=== PATIENT | male | born 2000 | race Caucasian/White ===

== ENCOUNTER 2019-04-21 23:32 | Emergency (ER) | payer SELFPAY ==
[2019-04-21 23:32] VITALS: BMI 22.8
--- NOTE | 2019-04-21 23:33 | ED_ITS ---
Entered by Yvonne Taylor, acting as scribe for Mason Bush DO HPI - Altered Mental Status General: Chief Complaint: Altered Mental Status Stated Complaint: Altered Mental Status Time Seen by Provider: 04/21/19 23:33 Source: EMS Mode of arrival: EMS Limitations: no limitations History of Present Illness: HPI narrative: 18 yo m came to the er by [facility] for altered mental status. Onset was 3 hours ago. Pt states that he was offered to go to a libertarian and was given a cup of coke and when he started drinking it he found out that there was 2 shots of vodka in it but was unsure about if there was anything else in it. Pt is having some tremors. Pt said that he was trying to vomit to try to get that out of his system and was able to but when he did he said that it made his chest hurt. MD complaint: altered mental status (mild) Onset (ago): hour(s) (3 hours ago) Severity: mild Context: alcohol abuse and drug abuse Associated symptoms: Reports no associated symptoms Treatments prior to arrival: other (2mg of ativan) Review of Systems General: Reports: other (negative unless marked) Const: Denies: fever, chills, body aches, change in appetite, fatigue or malaise ENMT: Denies: throat pain, ear pain, nasal discharge or nasal congestion Card: Denies: chest pain, edema, shortness of breath on exertion or shortness of breath when lying down Resp: Denies: shortness of breath, productive cough or non-productive cough GI: Denies: abdominal pain, nausea, vomiting, vomiting blood, coffee grounds in vomit, diarrhea, constipation, bloating, blood in stool or black tarry stool : Denies: flank pain, painful urination, urinary frequency or urinary urgency Skin/Breast: Denies: rash or itching Psych: Reports: anxiety and sleeping less PFSH ED PFSH: Social History Smoking and tobacco status: current every day smoker Physical Exam Const: EXAM LIMITATIONS: altered mental status (mild) OR IENTATION/CONSCIOUSNESS: Yes awake Eye: COMMON NORMALS: PERRL PUPIL: Yes PERRL Neck/C-Spine: COMMON NORMALS: full ROM Chest: COMMONS NORMALS: inspection of chest normal Resp: COMMON NORMALS: normal respiratory effort Cardio: RATE: tachycardic GI: COMMON NORMALS: normal to inspection, nondistended, normoactive bowel sounds and soft to palpation PALPATION: Yes soft : COMMON NORMALS: Yes no CVA tenderness BLADDER/KIDNEY EXAM: Yes no CVA tenderness Back/Pelvis: COMMON NORMALS: no CVA tenderness Extremity: COMMON NORMALS: normal to inspection Neuro: ROSA COMA SCALE: document GCS findings (ems 15) Psych: COMMON NORMALS: cooperative Skin: COMMON NORMALS: no rashes or lesions noted GENERAL SKIN EXAM: no ra shes or lesions noted Course ED course: On reexamination patient is awake and alert he appears to have a lot of anxiety when he first arrived that is mostly resolved he is mildly elevated white count. We have given him some fluids he does say he feels much better. His carbon dioxide was low when he first came in and think he was hyperventilating. We will go ahead and discharge him home strongly encouraged him to avoid alcohol. Vital Signs: Vital signs: Vital Signs Pulse Rate 94 04/22/19 00:30 Respiratory Rate 18 04/22/19 00:30 Blood Pressure 101/39 04/22/19 00:30 Pulse Oximetry 94 04/22/19 00:30 MDM - Altered Mental Status Lab Data: Labs: Lab Results 04/21/19 04/21/19 04/22/19 Range/Units 23:20 23:20 00:25 WBC 18.6 H (4.5-13.0) 10^3/ uL RBC 5.66 H (4.1-5.3) 10^6/u L Hgb 18.0 H (11.7-16.6) g/dL Hct 49.4 (42.0-52.0) % MCV 87.3 (80-94) fL MCH 31.8 (28.0-34.0) pg MCHC 36.4 H (30.0-36.0) g/dL RDW 12.0 L (12.1-15.1) % Plt Count 380 (130-400) 10^3/c mm MPV 10.8 H (7.4-10.4) fL Neut % (Auto) 74.9 % Lymph % (Auto) 15.7 % Bryan % (Auto) 8.0 % Eos % (Auto) 0.6 % Baso % (Auto) 0.5 % Neut # (Auto) 13.9 H (1.8-8.0) 10^3/u L Lymph # (Auto) 2.9 (1.5-6.5) 10^3/u L Bryan # (Auto) 1.5 H (0.2-0.9) 10^3/u L Eos # (Auto) 0.1 (0.0-0.8) 10^3/u L Baso # (Auto) 0.1 (0.0-0.1) 10^3/u L Nucleated RBC % (a uto) 0 % Nucleated RBCs # 0.0 /100WBC Sodium 140 (136-145) mmol/L Potassium 3.5 (3.5-5.1) mmol/L Chloride 103 (98-107) mmol/L Carbon Dioxide 15 L (22-29) mmol/L Anion Gap 25.5 H (5-19) BUN 11 (6-20) mg/dL Creatinine 0.9 (0.7-1.2) mg/dL GFR Calculation 108.7 (90-130) mL/min Glucose 161 H (65-115) mg/dL Calculated Osmolal ity 290 (285-295) mOsm/k g Calcium 10.6 H (8.5-10.5) mg/dL Total Bilirubin 0.6 (0.15-1.2) mg/dL AST 26 (0-40) U/L ALT 27 (0-41) U/L Alkaline Phosphata se 110 (40-130) IU/L Total Protein 8.2 (6.6-8.7) g/dL Albumin 5.4 H (3.5-5.2) g/dL Globulin 2.8 (1.3-4.6) g/dL Urine Color Yellow (Yellow) Urine Appearance Clear (CLEAR) Urine pH 6.5 (5-7) Ur Specific Gravit y 1.010 (1.005-1.030) Urine Protein Neg (Negative) Urine Glucose (UA) Norm (Normal) Urine Ketones Negative (Negative) Urine Blood Neg (Negative) Urine Nitrate Negative (Negative) Urine Bilirubin Neg (NEGATIVE) Urine Urobilinogen Norm (Negative) mg/dL Ur Leukocyte Sarah ase Negative (Negative) Salicylates < 0.3 L (3-10) mg/dL Urine Opiates Scre en (Negative) ng/mL Acetaminophen < 5.0 L (10-30) ug/mL Ur Barbiturates Sc reen (Negative) ng/mL Ur Phencyclidine S crn (Negative) ng/mL Ur Amphetamines Sc reen (Negative) ng/mL U Benzodiazepines Scrn (Negative) ng/mL Urine Cocaine Scre en (Negative) ng/mL U Marijuana (THC) Screen (Negative) ng/mL Ethyl Alcohol 77 H (0-10) mg/dL 04/22/19 Range/Units 00:25 WBC (4.5-13.0) 10^3/ uL RBC (4.1-5.3) 10^6/u L Hgb (11.7-16.6) g/dL Hct (42.0-52.0) % MCV (80-94) fL MCH (28.0-34.0) pg MCHC (30.0-36.0) g/dL RDW (12.1-15.1) % Plt Count (130-400) 10^3/c mm MPV (7.4-10.4) fL Neut % (Auto) % Lymph % (Auto) % Bryan % (Auto) % Eos % (Auto) % Baso % (Auto) % Neut # (Auto) (1.8-8.0) 10^3/u L Lymph # (Auto) (1.5-6.5) 10^3/u L Bryan # (Auto) (0.2-0.9) 10^3/u L Eos # (Auto) (0.0-0.8) 10^3/u L Baso # (Auto) (0.0-0.1) 10^3/u L Nucleated RBC % (a uto) % Nucleated RBCs # /100WBC Sodium (136-145) mmol/L Potassium (3.5-5.1) mmol/L Chloride (98-107) mmol/L Carbon Dioxide (22-29) mmol/L Anion Gap (5-19) BUN (6-20) mg/dL Creatinine (0.7-1.2) mg/dL GFR Calculation (90-130) mL/min Glucose (65-115) mg/dL Calculated Osmolal ity (285-295) mOsm/k g Calcium (8.5-10.5) mg/dL Total Bilirubin (0.15-1.2) mg/dL AST (0-40) U/L ALT (0-41) U/L Alkaline Phosphata se (40-130) IU/L Total Protein (6.6-8.7) g/dL Albumin (3.5-5.2) g/dL Globulin (1.3-4.6) g/dL Urine Color (Yellow) Urine Appearance (CLEAR) Urine pH (5-7) Ur Specific Gravit y (1.005-1.030) Urine Protein (Negative) Urine Glucose (UA) (Normal) Urine Ketones (Negative) Urine Blood (Negative) Urine Nitrate (Negative) Urine Bilirubin (NEGATIVE) Urine Urobilinogen (Negative) mg/dL Ur Leukocyte Sarah ase (Negative) Salicylates (3-10) mg/dL Urine Opiates Scre en Negative (Negative) ng/mL Acetaminophen (10-30) ug/mL Ur Barbiturates Sc reen Negative (Negative) ng/mL Ur Phencyclidine S crn Negative (Negative) ng/mL Ur Amphetamines Sc reen Negative (Negative) ng/mL U Benzodiazepines Scrn Negative (Negative) ng/mL Urine Cocaine Scre en Negative (Negative) ng/mL U Marijuana (THC) Screen Negative (Negative) ng/mL Ethyl Alcohol (0-10) mg/dL Discharge Plan Discharge Patient Disposition: Home, Self-Care Clinical Impression: Anxiety, Acute hyperventilation Condition: Stable Discharge Orders: Discharge Order (Routine); Ordered 04/22/19 Ordered By: Mason Bush Discharge Diet: Usual diet Discharge Activity: Resume usual activity Coding Level of Care Code ED Wire Machine Operator for Chg Fwd Exam Comprehensive The documentation recorded by the Brandon aguilar Stephanie Lyn, accurately reflects the service I personally performed and the decisions made by Rachelle fischer Curtis L, Apr 21, 2019 23:32
--- NOTE | 2019-04-21 23:40 | ECG_ITS ---
Measurements Intervals [place] Rate: 130 P: 70 CA: 116 QRS: 107 QRSD: 91 T: 15 QT: 333 QTc: 490 SINUS TACHYCARDIA WITH SHORT CA INTERVAL RIGHT AXIS DEVIATION [QRS AXIS > 100] NONSPECIFIC T-WAVE ABNORMALITY No previous ECG available for comparison Electronically Signed On 04-22-2019 12:46:26 CDT by Pati Ruiz M.D. [id number]
[2019-04-21 23:43] VITALS: BP 159/90; PULSE 98; RESP 16; O2SAT 98
[2019-04-21 23:53] LABS: Basophils # 0.1 10^3/uL (0.0-0.1); Basophils % 0.5 %; Eosinophils # 0.1 10^3/uL (0.0-0.8); Eosinophils % 0.6 %; Hematocrit 49.4 % (42.0-52.0); Lymphocytes # 2.9 10^3/uL (1.5-6.5); Lymphocytes % 15.7 %; Mean Corpuscular HGB Conc 36.4 g/dL (30.0-36.0); Mean Corpuscular Hemoglobin 31.8 pg (28.0-34.0); Mean Corpuscular Volume 87.3 fL (80-94); Mean Platelet Volume 10.8 fL (7.4-10.4); Monocytes # 1.5 10^3/uL (0.2-0.9); Neutrophils # 13.9 10^3/uL (1.8-8.0); Neutrophils % 74.9 %; Nucleated Red Blood Cells % 0 %; Platelet Count 380 10^3/cmm (130-400); Red Blood Count 5.66 10^6/uL (4.1-5.3); White Blood Count 18.6 10^3/uL (4.5-13.0)
[2019-04-22 00:04] LABS: Alanine Aminotransferase 27 U/L (0-41); Albumin Level 5.4 g/dL (3.5-5.2); Alcohol Level 77 mg/dL (0-10); Alkaline Phosphatase 110 IU/L (40-130); Anion Gap 25.5 (5-19); Aspartate Amino Transferase 26 U/L (0-40); Blood Urea Nitrogen 11 mg/dL (6-20); Calcium 10.6 mg/dL (8.5-10.5); Carbon Dioxide 15 mmol/L (22-29); Chloride 103 mmol/L (98-107); Globulin 2.8 g/dL (1.3-4.6); Glomerular Filtration Rate 108.7 mL/min (90-130); Glucose 161 mg/dL (65-115); Osmolality Calculated 290 mOsm/kg (285-295); Potassium 3.5 mmol/L (3.5-5.1); Sodium 140 mmol/L (136-145); Total Bilirubin 0.6 mg/dL (0.15-1.2); Total Protein 8.2 g/dL (6.6-8.7)
[2019-04-22 00:06] LABS: Acetaminophen < 5.0 ug/mL (10-30); Salicylate < 0.3 mg/dL (3-10)
[2019-04-22] MEDS: sodium chloride 0.9% 1,000 ML 999 ML IV (00:28)
[2019-04-22 00:30] VITALS: BP 101/39; PULSE 94; RESP 18; O2SAT 94
[2019-04-22 00:37] LABS: Add Urine Microscopic? NO
[2019-04-22 00:42] LABS: Bilirubin Urine Neg (NEGATIVE); Blood Urine Neg (Negative); Glucose Urine UA Norm (Normal); Ketones Urine Negative (Negative); Leukocyte Esterase Urine Negative (Negative); Nitrate Urine Negative (Negative); Protein Urine Neg (Negative); Urine Appearance Clear (CLEAR); Urine Color Yellow (Yellow); Urobilinogen Urine Norm (Negative); pH Urine 6.5 (5-7)
[2019-04-22 00:48] LABS: Amphetamines Screen Urine Negative (Negative); Barbiturates Screen Urine Negative (Negative); Benzodiazepines Screen Urine Negative (Negative); Cocaine Screen Urine Negative (Negative); Opiate Screen Urine Negative (Negative); PCP Screen Urine Negative (Negative); THC Screen Urine Negative (Negative)
--- NOTE | 2019-04-22 01:14 | XR_ITS ---
WS: [id number] XR chest 1V portable [id number] REASON FOR EXAM: dyspnea/cough FINDINGS: The lung darnell are mildly hyper aerated. Lung darnell are clear there is no pneumonia pleural effusion pulmonary edema. There are scattered granulomas both lung darnell. The hilum and apices normal. XR/XR chest 1V portable [id number] IMPRESSION: Mild air trapping changes No active cardiopulmonary changes.
[2019-04-22 02:42] VITALS: BP 113/55; PULSE 93; RESP 18; O2SAT 96
== END 2019-04-22 02:44 | disposition home or self-care (01) ==
PROVIDERS: Emergency Provider Family Medicine
DX: R06.4 Hyperventilation (principal); F17.210 Nicotine dependence, cigarettes, uncomplicated
CPT/HCPCS: 12345; 71045; 80053; 80306; 80307; 81003; 85025; 93005; 96360; 96361; 99283; A9270; J7030

== ENCOUNTER 2019-04-22 17:33 | Emergency (ER) | payer SELFPAY ==
[2019-04-22 17:39] VITALS: BP 137/74; PULSE 101; RESP 16; TEMP 37.1; O2SAT 97; BMI 22.0
--- NOTE | 2019-04-22 19:12 | ED_ITS ---
Entered by Carin Higuera, acting as scribe for Janet Anderson MD, [facility] Apr 22, 2019 17:33 HPI - Chest Pain General: Chief Complaint: Chest Pain Stated Complaint: CP,DIZZY, COUGH Time Seen by Provider: 04/22/19 19:11 Source: patient Mode of arrival: ambulatory Limitations: no limitations History of Present Illness: HPI narrative: 18 yo Male presents to ED with complaint of chest pain, dizziness, and cough. Pt was seen in the ED last night for similar symptoms. Pt states that since he got up this morning he has really bad chest pains. Pt states that it feels like he is being stabbed in the chest. Pt states that it feels like it is speeding up his breathing and making him short of breath. Pt states that he just moved here from [place], [place] about 2.5 weeks ago. Pt states that he drinks on occasion. Pt states that he was seen in the ED last night after he went to a friend's democrat. Pt states that he was told he was being given a coke but he found out that it had shots of vodka in it later. Pt states that this was when he first started having difficulty breathing. complaint: chest pain Timing of current episode: episodic and still present Prior episodes: Yes Onset: during rest and during exertion Pain location: right chest Pain radiation: other (across chest) Pain scale (0-10): 4 Quality: sharp Relieving factors: nothing Exacerbating factors: exertion and inspiration Associated symptoms: Reports dyspnea, palpitations and other (cough); Deny abdominal pain, fever(s), nausea or vomiting Treatment prior to arrival: none Review of Systems General: Reports: 10 or more systems reviewed and unremarkable except in HPI and below Const: Denies: fever, chills or body aches Eyes: Denies: change in vision or blurry vision ENMT: Denies: throat pain, enlarged tonsils, painful swallowing, hoarseness, mouth pain or swelling of lips/tongue Card: Reports: chest pain and palpitations; Denies: irregular heart rhythm, edema or swelling of feet/ankles Resp: Reports: shortness of breath, non-productive cough and pain on inspiration; Denies: productive cough GI: Denies: abdominal pain, nausea or vomiting : Denies: flank pain, painful urination, urinary frequency, urinary urgency or urinary hesitancy Musc: Denies: neck pain, back pain or extremity swelling Skin/Breast: Denies: rash, itching or redness Neuro: Denies: headache, numbness in extremities or weakness in extremities Endo: Denies: excessive urination, excessive thirst or tired all the time PFSH ED PFSH: Social History Smoking and tobacco status: current every day smoker Physical Exam Const: COMMON NORMALS: no apparent distress, average body habitus, oriented x3, no limitations, healthy appearing, alert and well nourished HENMT: COMMON NORMALS: normocephalic, head/scalp atraumatic and moist oral mucous membranes HEAD & SCALP: normocephalic and atraumatic Eye: COMMON NORMALS: PERRL, EOMs intact bilaterally, conjunctivae normal and no scleral icterus CONJUNCTIVA: Yes conjunctivae normal PUPIL: Yes PERRL Neck/C-Spine: COMMON NORMALS: full ROM, supple, no meningeal signs, no JVD and no carotid bruits Chest: COMMONS NORMALS: inspection of chest normal and palpation of chest normal Resp: COMMON NORMALS: normal respiratory effort, no retractions, no use of accessory muscles, clear to auscultation bilaterally and percussion normal AUSCULTATION: clear to auscultation bilaterally PERCUSSION: percussion normal Cardio: COMMON NORMALS: no JVD, regular rate, regular rhythm, S1 normal heart sound, S2 normal heart sound, no gallops, no clicks, no murmurs, no rub and peripheral pulses 2+ throughout RATE: regular rate RHYTHM: regular rhythm HEART SOUNDS: S1 normal and S2 normal PERIPHERAL PULSES: pulses 2+ throughout GI: COMMON NORMALS: normal to inspection, nondistended, normoactive bowel sounds, soft to palpation, non-tender, no hepatosplenomegaly, no masses and no bruits PALPATION: Yes soft and Yes no hepatosplenomegaly : COMMON NORMALS: Yes no CVA tenderness BLADDER/KIDNEY EXAM: Yes no CVA tenderness Back/Pelvis: COMMON NORMALS: no CVA tenderness Extremity: COMMON NORMALS: normal to inspection, full ROM, normal capillary refill, no calf tenderness and no pedal edema Neuro: COMMON NORMALS: oriented x3 SENSORIUM/ORIENTATION: Yes alert MEN INGEAL SIGNS: Yes no meningeal signs Skin: COMMON NORMALS: no rashes or lesions noted, no wounds, skin turgor normal, no jaundice, no petechiae and no mottling GENERAL SKIN EXAM: no rashes or lesions noted and turgor normal Course Reevaluation(s): Reevaluation #1: Discussed his lab and imaging findings with him. Negative for acute findings. Negative d-dimer. Negative troponin. He will be discharged home with no new orders. He is advised to drink lots of water to keep well-hydrated. He voiced understanding and he is in agreement with the plan. Time: 21:15 Vital Signs: Vital signs: Vital Signs Temperature 98.8 F 04/22/19 17:39 Pulse Rate 81 04/22/19 21:31 Respiratory Rate 18 04/22/19 21:31 Blood Pressure 117/68 04/22/19 21:31 Pulse Oximetry 100 04/22/19 21:31 MDM - Chest Pain MDM Narrative: Medical decision making narrative: Patient who presents to the emergency department with chest pain. He is a 18-year-old male with no past medical history and no family history of cardiac illness. Evaluation in the emergency room was unremarkable including negative PE screening and negative troponin. He he is discharged home with no new orders. Lab Data: Labs: Lab Results 04/22/19 04/22/19 04/22/19 Range/Units 19:50 19:50 19:55 WBC 9.8 (4.5-13.0) 10^3/ uL RBC 5.40 H (4.1-5.3) 10^6/u L Hgb 17.2 H (11.7-16.6) g/dL Hct 48.8 (42.0-52.0) % MCV 90.4 (80-94) fL MCH 31.9 (28.0-34.0) pg MCHC 35.2 (30.0-36.0) g/dL RDW 12.6 (12.1-15.1) % Plt Count 259 (130-400) 10^3/c mm MPV 10.6 H (7.4-10.4) fL Neut % (Auto) 63.8 % Lymph % (Auto) 23.8 % Craig % (Auto) 9.8 % Eos % (Auto) 1.9 % Baso % (Auto) 0.5 % Neut # (Auto) 6.2 (1.8-8.0) 10^3/u L Lymph # (Auto) 2.3 (1.5-6.5) 10^3/u L Craig # (Auto) 1.0 H (0.2-0.9) 10^3/u L Eos # (Auto) 0.2 (0.0-0.8) 10^3/u L Baso # (Auto) 0.1 (0.0-0.1) 10^3/u L Nucleated RBC % (a uto) 0 % Nucleated RBCs # 0.0 /100WBC PT (10.5-13.3) SECO NDS INR (0.8-1.2) D-Dimer (0-0.59) ug/mIFE U Sodium (136-145) mmol/L Potassium (3.5-5.1) mmol/L Chloride (98-107) mmol/L Carbon Dioxide (22-29) mmol/L Anion Gap (5-19) BUN (6-20) mg/dL Creatinine (0.7-1.2) mg/dL GFR Calculation (90-130) mL/min Glucose (65-115) mg/dL Calculated Osmolal ity (285-295) mOsm/k g Calcium (8.5-10.5) mg/dL Total Bilirubin (0.15-1.2) mg/dL AST (0-40) U/L ALT (0-41) U/L Alkaline Phosphata se (40-130) IU/L Troponin T Baselin e (0-15) ng/mL Total Protein (6.6-8.7) g/dL Albumin (3.5-5.2) g/dL Globulin (1.3-4.6) g/dL Lipase (13-60) U/L Urine Color Yellow (Yellow) Urine Appearance Clear (CLEAR) Urine pH 7 (5-7) Ur Specific Gravit y 1.010 (1.005-1.030) Urine Protein Neg (Negative) Urine Glucose (UA) Norm (Normal) Urine Ketones Negative (Negative) Urine Blood Neg (Negative) Urine Nitrate Negative (Negative) Urine Bilirubin Neg (NEGATIVE) Urine Urobilinogen Norm (Negative) mg/dL Ur Leukocyte Sarah ase Negative (Negative) Urine Opiates Scre en Negative (Negative) ng/mL Ur Barbiturates Sc reen Negative (Negative) ng/mL Ur Phencyclidine S crn Negative (Negative) ng/mL Ur Amphetamines Sc reen Negative (Negative) ng/mL U Benzodiazepines Scrn Positive H (Negative) ng/mL Urine Cocaine Scre en Negative (Negative) ng/mL U Marijuana (THC) Screen Positive H (Negative) ng/mL 04/22/19 04/22/19 04/22/19 Range/Units 19:55 19:55 19:55 WBC (4.5-13.0) 10^3/ uL RBC (4.1-5.3) 10^6/u L Hgb (11.7-16.6) g/dL Hct (42.0-52.0) % MCV (80-94) fL MCH (28.0-34.0) pg MCHC (30.0-36.0) g/dL RDW (12.1-15.1) % Plt Count (130-400) 10^3/c mm MPV (7.4-10.4) fL Neut % (Auto) % Lymph % (Auto) % Craig % (Auto) % Eos % (Auto) % Baso % (Auto) % Neut # (Auto) (1.8-8.0) 10^3/u L Lymph # (Auto) (1.5-6.5) 10^3/u L Craig # (Auto) (0.2-0.9) 10^3/u L Eos # (Auto) (0.0-0.8) 10^3/u L Baso # (Auto) (0.0-0.1) 10^3/u L Nucleated RBC % (a uto) % Nucleated RBCs # /100WBC PT 13.80 H (10.5-13.3) SECO NDS INR 1.06 (0.8-1.2) D-Dimer 0.28 (0-0.59) ug/mIFE U Sodium 141 (136-145) mmol/L Potassium 4.0 (3.5-5.1) mmol/L Chloride 104 (98-107) mmol/L Carbon Dioxide 25 (22-29) mmol/L Anion Gap 16.0 (5-19) BUN 9 (6-20) mg/dL Creatinine 0.8 (0.7-1.2) mg/dL GFR Calculation 124.5 (90-130) mL/min Glucose 86 (65-115) mg/dL Calculated Osmolal ity 287 (285-295) mOsm/k g Calcium 10.1 (8.5-10.5) mg/dL Total Bilirubin 0.7 (0.15-1.2) mg/dL AST 21 (0-40) U/L ALT 20 (0-41) U/L Alkaline Phosphata se 101 (40-130) IU/L Troponin T Baselin e 6 (0-15) ng/mL Total Protein 7.5 (6.6-8.7) g/dL Albumin 5.2 (3.5-5.2) g/dL Globulin 2.3 (1.3-4.6) g/dL Lipase 17 (13-60) U/L Urine Color (Yellow) Urine Appearance (CLEAR) Urine pH (5-7) Ur Specific Gravit y (1.005-1.030) Urine Protein (Negative) Urine Glucose (UA) (Normal) Urine Ketones (Negative) Urine Blood (Negative) Urine Nitrate (Negative) Urine Bilirubin (NEGATIVE) Urine Urobilinogen (Negative) mg/dL Ur Leukocyte Sarah ase (Negative) Urine Opiates Scre en (Negative) ng/mL Ur Barbiturates Sc reen (Negative) ng/mL Ur Phencyclidine S crn (Negative) ng/mL Ur Amphetamines Sc reen (Negative) ng/mL U Benzodiazepines Scrn (Negative) ng/mL Urine Cocaine Scre en (Negative) ng/mL U Marijuana (THC) Screen (Negative) ng/mL EKG Data^: EKG 1: EKG interpretation date: 04/22/19 Computer generated interpretation: [address] [id number] Electrocardiograph Report Signed Patient: Daniel Estrada #: [id number] : 2000Acct#:[id number] Age/Sex: 18 / MADM Date: 04/22/19 Loc: ERRoom/Bed: Attending Dr: Ordering Provider/Ordering MD: Janet Anderson MD, [facility] Date of Service: 04/22/19 Procedure(s): ECG 12 lead EKG Accession Number(s): [id number] Report Number: [id number] Measurements Intervals [place] Rate: 80 P: 73 ND: 129 QRS: 99 QRSD: 94 T: 50 QT: 373 QTc: 432 SINUS RHYTHM BORDERLINE RIGHT AXIS DEVIATION [QRS AXIS > 90] Compared to ECG 04/21/2019 23:55:17 Sinus tachycardia no longer present Short ND interval no longer present T-wave abnormality no longer present Electronically Signed On 04-22-2019 20:06:12 CDT by Pati Ruiz M.D. [id number] Dictated By:Pati Ruiz MD Signed By:Pati Ruiz MDSigned Date/Time:04/22/192007 DD/ 47 Discharge Plan Discharge Patient Disposition: Home, Self-Care Clinical Impression: Chest pain Qualifiers: Chest pain type: other chest pain Qualified Code(s): R07.89 - Other chest pain Condition: Stable Prescriptions: No Action No Known Home Medications RF: 0 Discharge Orders: Discharge Order (Routine); Ordered 04/22/19 Ordered By: Janet Anderson Discharge Diet: Usual diet Discharge Activity: Resume usual activity Patient Instructions: Chest Pain (ED) Activity Restrictions/Additional Instructions: Return for any new or worsening symptoms. Follow-up with your primary care provider within 1 week. Drink plenty of water to keep well-hydrated. Discharge Date/Time: 04/22/19 22:51 Coding Level of Care Code ED Transportation Job Titles for Chg Fwd Exam Comprehensive The documentation recorded by the Davida aguilar Carmen, accurately reflects the service I personally performed and the decisions made by Justin fischer Adegoke I, MD, [facility] Apr 22, 2019 17:33
--- NOTE | 2019-04-22 19:32 | ECG_ITS ---
Measurements Intervals [place] Rate: 107 P: 82 FL: 124 QRS: 100 QRSD: 93 T: 52 QT: 342 QTc: 457 SINUS TACHYCARDIA POSSIBLE RIGHT ATRIAL ENLARGEMENT [0.25mV P WAVE] BORDERLINE RIGHT AXIS DEVIATION [QRS AXIS > 90] ABNORMAL RHYTHM ECG Compared to ECG 04/21/2019 23:55:17 Short [place] interval no longer present T-wave abnormality no longer present Electronically Signed On 04-24-2019 12:44:23 CDT by Sunny Cisneros [id number]
--- NOTE | 2019-04-22 19:33 | XR_ITS ---
WS: [id number] XR chest 2V* [id number] REASON FOR EXAM: chest pain FINDINGS: The heart and mediastinal interfaces normal. The lung darnell are well aerated. No pneumonia, pleural effusion, pulmonary edema, no pneumothorax, n o mass effect. There is mild blunting of the left costophrenic angle suggesting the possibility of pleurisy. The hilum and apices normal. XR/XR chest 2V* [id number] IMPRESSION: Mild blunting of the left costophrenic angle suggesting small amount of fluid p leurisy to be ruled out.
[2019-04-22 20:05] VITALS: BP 120/63; PULSE 73; RESP 16; O2SAT 96
[2019-04-22 20:15] LABS: Basophils # 0.1 10^3/uL (0.0-0.1); Basophils % 0.5 %; Eosinophils # 0.2 10^3/uL (0.0-0.8); Eosinophils % 1.9 %; Hematocrit 48.8 % (42.0-52.0); Hemoglobin 17.2 g/dL (11.7-16.6); Lymphocytes # 2.3 10^3/uL (1.5-6.5); Lymphocytes % 23.8 %; Mean Corpuscular HGB Conc 35.2 g/dL (30.0-36.0); Mean Corpuscular Hemoglobin 31.9 pg (28.0-34.0); Mean Corpuscular Volume 90.4 fL (80-94); Mean Platelet Volume 10.6 fL (7.4-10.4); Monocytes % 9.8 %; Neutrophils # 6.2 10^3/uL (1.8-8.0); Neutrophils % 63.8 %; Nucleated Red Blood Cells % 0 %; Platelet Count 259 10^3/cmm (130-400); Red Cell Distribution Width 12.6 % (12.1-15.1); White Blood Count 9.8 10^3/uL (4.5-13.0)
[2019-04-22 20:16] LABS: Add Urine Microscopic? NO
[2019-04-22 20:21] LABS: Blood Urine Neg (Negative); Glucose Urine UA Norm (Normal); Ketones Urine Negative (Negative); Nitrate Urine Negative (Negative); Protein Urine Neg (Negative); Urine Appearance Clear (CLEAR); Urine Color Yellow (Yellow); pH Urine 7 (5-7)
[2019-04-22 20:22] LABS: Bilirubin Urine Neg (NEGATIVE); Leukocyte Esterase Urine Negative (Negative); Urobilinogen Urine Norm (Negative)
[2019-04-22 20:29] LABS: Amphetamines Screen Urine Negative (Negative); Barbiturates Screen Urine Negative (Negative); Benzodiazepines Screen Urine Positive (Negative); Cocaine Screen Urine Negative (Negative); Opiate Screen Urine Negative (Negative); PCP Screen Urine Negative (Negative); THC Screen Urine Positive (Negative)
[2019-04-22 20:32] LABS: Alanine Aminotransferase 20 U/L (0-41); Albumin Level 5.2 g/dL (3.5-5.2); Alkaline Phosphatase 101 IU/L (40-130); Aspartate Amino Transferase 21 U/L (0-40); Blood Urea Nitrogen 9 mg/dL (6-20); Calcium 10.1 mg/dL (8.5-10.5); Carbon Dioxide 25 mmol/L (22-29); Chloride 104 mmol/L (98-107); Globulin 2.3 g/dL (1.3-4.6); Glomerular Filtration Rate 124.5 mL/min (90-130); Glucose 86 mg/dL (65-115); Lipase 17 U/L (13-60); Osmolality Calculated 287 mOsm/kg (285-295); Sodium 141 mmol/L (136-145); Total Bilirubin 0.7 mg/dL (0.15-1.2); Total Protein 7.5 g/dL (6.6-8.7); Troponin(5th) Baseline 6 ng/mL (0-15)
[2019-04-22 21:06] LABS: D Dimer 0.28 ug/mIFEU (0-0.59); INR 1.06 (0.8-1.2)
[2019-04-22 21:31] VITALS: BP 117/68; PULSE 81; RESP 18; O2SAT 100
--- NOTE | 2019-04-22 21:32 | ECG_ITS ---
Measurements Intervals [place] Rate: 80 P: 73 IN: 129 QRS: 99 QRSD: 94 T: 50 QT: 373 QTc: 432 SINUS RHYTHM BORDERLINE RIGHT AXIS DEVIATION [QRS AXIS > 90] Compared to ECG 04/21/2019 23:55:17 Sinus tachycardia no longer present Short IN interval no longer present T-wave abnormality no longer present Electronically Signed On 04-22-2019 20:06:12 CDT by Pati Ruiz M.D. [id number]
--- NOTE | 2019-04-22 22:38 | PC.NURSE ---
agree with assessment as provided.
== END 2019-04-22 22:51 | disposition home or self-care (01) ==
PROVIDERS: Emergency Provider Family Medicine
DX: R07.89 Other chest pain (principal); R42 Dizziness and giddiness; R05 Cough; R00.0 Tachycardia, unspecified; R94.31 Abnormal electrocardiogram [ECG] [EKG]
CPT/HCPCS: 12345; 71046; 80053; 80306; 81003; 83690; 84484; 85025; 85378; 85610; 93005; 93010; 99283; 99284